=== PATIENT | male | born 2000 | race Caucasian/White ===

== ENCOUNTER 2022-04-27 15:49 | Emergency (ER) | payer OTHER ==
[~2022-04-27] VITALS: Ht 188 cm; Wt 96.6 kg
[2022-04-27] MEDS ORDERED: FLUORESCEIN OPHTH 1 MG STRIP OD ONE (16:40)
[2022-04-27] MEDS ORDERED: PROPARACAINE 0.5% OPHTH SOL 15ML OD ONE (16:40)
[2022-04-27] MEDS ORDERED: IBUPROFEN 800 MG TAB PO ONE (17:20)
[2022-04-27] MEDS ORDERED: ERYTHROMYCIN OPHTH OINT OD ONE (18:25)
[2022-04-27] MEDS ORDERED: ERYT5OIN25 OD (18:25)
[2022-04-27 18:39] VITALS: BP 125/68
== END 2022-04-27 18:50 | disposition home or self-care (01) ==
LOC: M ED 15:49
DX: H10.31 Unspecified acute conjunctivitis, right eye (principal); W01.198A Fall on same level from slipping, tripping and stumbling with subsequent striking against other object, initial encounter; Y92.138 Other place on military base as the place of occurrence of the external cause; Y93.89 Activity, other specified; Y99.1 Military activity